=== PATIENT | male | born 1985 | race Caucasian/White ===

== ENCOUNTER 2020-11-11 07:16 | Emergency (ER) | payer MEDICAID ==
[~2020-11-11] VITALS: Ht 162.6 cm; Wt 56.8 kg
[2020-11-11 07:25] VITALS: BP 123/90
--- NOTE | 2020-11-11 16:53 | NUR ---
pt was not fully registered so dc was held up. last call of NIL occurred 919when dc was attempted. Registration resolved issed ~[phone] when pt able to be dc'd from [facility].
== END 2020-11-11 16:54 | disposition left against medical advice (07) ==
LOC: ER 15:12
DX: F41.9 Anxiety disorder, unspecified (principal); Z53.21 Procedure and treatment not carried out due to patient leaving prior to being seen by health care provider

== ENCOUNTER 2021-04-16 10:07 | Emergency (ER) | payer MEDICAID ==
[~2021-04-16] VITALS: Ht 162.6 cm; Wt 56.0 kg
--- NOTE | 2021-04-16 10:15 | NUR ---
pt is 35 yo male BIB EMS from [facility] on [id number] for DTS, pt did cut self with glass 3 days ago, was see in [place], given tetanus shot, minor abrasion to neck, healing well, no redness, no drainage, no pain, pt is talking full sentences, no resp distress, skin p/w/d, pt said he has been out of his propranolol for 2 weeks and feels anxious, also feels suicidal when he is off anxiety med. Pt is calm and cooperative,
[2021-04-16] MEDS ORDERED: LORazepam 1 MG tablet PO ONE (10:25)
[2021-04-16] MEDS ORDERED: OLANZapine **IM** 10 mg inj. IM ONE (10:25)
[2021-04-16] MEDS ORDERED: propranolol 10mg tablet PO ONE (10:30)
[2021-04-16 10:44] LABS: BASOPHILS # (AUTO) 0.1 X10'3 (0-0.2); EOSINOPHILS # (AUTO) 0.1 X10'3 (0-0.9); EOSINOPHILS % (AUTO) 1.5 % (0-6); HEMATOCRIT 38.7 % (42.0-52.0); HEMOGLOBIN 13.5 g/dl (14.0-17.9); LYMPHOCYTES % (AUTO) 21.5 % (21-51); MEAN CORPUSCULAR HEMOGLOBIN 33.6 PG (27.0-31.0); MEAN CORPUSCULAR HGB CONC 34.9 g/dL (33.0-36.5); MEAN CORPUSCULAR VOLUME 96.2 FL (78-98); MONOCYTES # (AUTO) 0.6 X10'3 (0-0.9); MONOCYTES % (AUTO) 6.4 % (2-12); NEUTROPHILS # (AUTO) 6.3 X10'3 (1.8-7.7); NEUTROPHILS % (AUTO) 69.6 % (42-75); PLATELET COUNT 288 X10'3 (140-440); RED BLOOD COUNT 4.02 X10'6 (4.70-6.10); RED CELL DISTRIBUTION WIDTH 15.5 % (11.5-14.5); WHITE BLOOD COUNT 9.1 X10'3 (4.5-11.0)
[2021-04-16 10:54] LABS: ALANINE AMINOTRANSFERASE 29 U/L (12-78); ALBUMIN 3.5 G/DL (3.4-5.0); ALBUMIN/GLOBULIN RATIO 0.9 (1.1-1.5); ALKALINE PHOSPHATASE 116 IU/L (46-116); ANION GAP 12 (8-16); ASPARTATE AMINO TRANSFERASE 21 U/L (10-37); BILIRUBIN,TOTAL 0.2 MG/DL (0.1-1.0); BLOOD UREA NITROGEN 8 MG/DL (7-18); BUN/CREATININE RATIO 10.1 (5.4-32.0); CHLORIDE 103 MMOL/L (99-107); CREATININE 0.79 MG/DL (0.60-1.10); GLUCOSE 94 MG/DL (70-104); SODIUM 142 MMOL/L (135-145); TOTAL CARBON DIOXIDE 26.7 MMOL/L (24-32); TOTAL PROTEIN 7.4 G/DL (6.4-8.2); eGFR > 90 ML/MIN
[2021-04-16 11:05] LABS: ETHANOL < 0.010 GM/DL (0.0-0.010)
[2021-04-16 11:12] LABS: CLARITY,URINE CLEAR (Clear); COLOR,URINE STRAW (Yellow); GLUCOSE, URINE NEGATIVE (Neg); KETONES,URINE NEGATIVE (Neg); LEUKOCYTE ESTERASE ,URINE NEGATIVE (Neg); NITRITES, URINE NEGATIVE (Neg); OCCULT BLOOD,URINE NEGATIVE (Neg); PROTEIN,URINE NEGATIVE (Neg); UA COLLECTION TYPE CLN CATCH MIDSTREAM; UROBILINOGEN,URINE 0.2 E.U/dL (0.2-1.0)
[2021-04-16 11:19] LABS: URINE AMPHETAMINE SCREEN NEGATIVE (Neg); URINE BARBITUATE SCREEN NEGATIVE (Neg); URINE BENZODIAZEPINES SCREEN NEGATIVE (Neg); URINE CANNABINOID SCREEN POSITIVE (Neg); URINE COCAINE SCREEN NEGATIVE (Neg); URINE METHADONE SCREEN NEGATIVE (Neg); URINE OPIATE SCREEN NEGATIVE (Neg); URINE PHENCYCLIDINE SCREEN NEGATIVE (Neg)
--- NOTE | 2021-04-16 11:30 | NUR ---
pt is sleeping, resp even and unlabored,
--- NOTE | 2021-04-16 12:39 | NUR ---
pt is sleeping, resp even and unlabored
--- NOTE | 2021-04-16 13:35 | NUR ---
Patient brought over from Main ED 14 into ED OF 23. Patient calm and eating lunch. No distress observed. Continue to monitor.
--- NOTE | 2021-04-16 14:59 | NUR ---
Patient sleeping supine with the covers over his head. No distress observed. Continue to monitor.
--- NOTE | 2021-04-16 17:10 | NUR ---
Patient sitting up in bed. No distress observed. Continue to monitor.
--- NOTE | 2021-04-16 23:52 | NUR ---
patient is sleeping soundly, rr 18.
--- NOTE | 2021-04-17 04:28 | NUR ---
tech went to take patient vitals stated he wanted to talk to nurse as he was anxious. When this RN finished with other patient, went to patient bed and patients was fast asleep. Will monitor.
[2021-04-17] MEDS: OLANZAPINE 5 MG TABLET PO SCH ×3 (04:42→19:23)
--- NOTE | 2021-04-17 06:50 | NUR ---
Received pt. sleeping on his left side at the beginning of the shift, rr even and unlabored
[2021-04-17] MEDS ORDERED: OLANZAPINE 5 MG TABLET PO SCH (08:00)
[2021-04-17] MEDS ORDERED: propranolol 10mg tablet PO SCH (08:15)
--- NOTE | 2021-04-17 08:51 | NUR ---
Pt. awakes and eats breakfast. He reports anxiety and states he takes Propranolol daily for this. Obtained an order from Dr. Robins.
--- NOTE | 2021-04-17 09:40 | NUR ---
Pt. sleeping in bed at this time, HOB elevated.
--- NOTE | 2021-04-17 10:30 | NUR ---
Pt. continues to sleep, laying on his left side at this time, no s/s of distress noted.
--- NOTE | 2021-04-17 12:22 | NUR ---
Pt. continues to rest in bed at this time, he is requesting lunch.
--- NOTE | 2021-04-17 13:02 | NUR ---
Matthew owens in EDM - 04/17/21 at 1302 by BRIAN Pt. is at CT at this time, getting an image of his head
--- NOTE | 2021-04-17 13:55 | NUR ---
Pt. continues to sleep at this time, laying on his left side, rr even and unlabored.
--- NOTE | 2021-04-17 14:36 | NUR ---
Spoke to [facility], who is looking at accepting pt. However, pt. must have a negative COVID test. Will get an order from .
--- NOTE | 2021-04-17 15:07 | NUR ---
Pt. is laying in bed at this time, appears to be resting comfortably.
[2021-04-17] MEDS ORDERED: hydrOXYzine 25 MG tablet PO ONE (15:20)
--- NOTE | 2021-04-17 15:44 | NUR ---
Pt. reported anxiety, obtained an order for PRN Atrax. COVID test completed for placement at [facility], pt. tolerated well.
--- NOTE | 2021-04-17 17:23 | NUR ---
Pt. has been accepted at [facility] by Dr. Rosa. His pickup is scheduled for 2015 tonight by [facility]. Pt. was informed and he is looking forward to this. Will endorse to Noc shift.
--- NOTE | 2021-04-17 19:25 | NUR ---
The patient is pending placement. He is aware that [place] [facility] [place]. He has been very cooperative. He currently is resting on his bed.
[2021-04-17 20:15] VITALS: BP 16/67
== END 2021-04-17 20:18 ==
LOC: ER 10:07
DX: F23 Brief psychotic disorder (principal); Z20.822 Contact with and (suspected) exposure to COVID-19; R45.851 Suicidal ideations; R45.1 Restlessness and agitation; F41.9 Anxiety disorder, unspecified
CPT/HCPCS: 36415; 80053; 80305; 80320; 81003; 84443; 85025; 87635; 96372; 99285; C9803; J3490; Q0177